=== PATIENT | male | born 1985 | race Caucasian/White ===

== ENCOUNTER → 2020-07-10 07:03 | Outpatient (CLI) | payer OTHER, SELFPAY ==
[2020-07-11 02:02] LABS: SARS-CoV-2 RNA PCR Negative
== END ==
PROVIDERS: PCP Family Medicine Adolescent Medicine; Visit Provider Family Medicine Adolescent Medicine
DX: Z20.822 Contact with and (suspected) exposure to COVID-19 (principal)
CPT/HCPCS: C9803; U0003; U0005

== ENCOUNTER 2020-08-10 07:50 | Outpatient (CLI) | payer OTHER, SELFPAY ==
[2020-08-10 08:31] LABS: Cholesterol 188 mg/dL (0-200); HDL Direct 40 mg/dL; Triglycerides 186 mg/dL (<150)
[2020-08-10 08:42] LABS: LDL Cholesterol Direct 116 mg/dL
== END 2020-08-10 07:51 | disposition home or self-care (01) ==
LOC: ANHLAB 07:53
PROVIDERS: PCP Family Medicine Adolescent Medicine; Visit Provider Internal Medicine Cardiovascular Disease
DX: E78.1 Pure hyperglyceridemia (principal)
CPT/HCPCS: 36415; 80061